=== PATIENT | male | born 1960 | race Caucasian/White ===

== ENCOUNTER 2024-11-04 03:01 | Emergency (ER) | payer SELFPAY ==
[2024-11-04 03:13] VITALS: BP 140/94; PULSE 71; RESP 16; TEMP 97.2; BMI 19.5
== END 2024-11-04 09:03 | disposition home or self-care (01) ==
LOC: FER 03:01
PROC: 0HQ1XZZ Repair Face Skin, External Approach (ICD-10-PCS; principal; 2024-11-04)
DX: S01.81XA Laceration without foreign body of other part of head, initial encounter (principal); S60.511A Abrasion of right hand, initial encounter; S60.512A Abrasion of left hand, initial encounter; F10.920 Alcohol use, unspecified with intoxication, uncomplicated; W01.198A Fall on same level from slipping, tripping and stumbling with subsequent striking against other object, initial encounter
CPT/HCPCS: 12011-25; 99284-25